=== PATIENT | male | born 1985 | race Caucasian/White ===

== ENCOUNTER 2019-04-26 01:50 | Emergency (ER) | payer SELFPAY ==
[~2019-04-26] VITALS: Ht 177.8 cm; Wt 86.1 kg
[2019-04-26 02:04] LABS: BASOPHILS # (AUTO) 0.1 10^3/uL (0.0-0.1); BASOPHILS % (AUTO) 1 % (0-10); EOSINOPHILS # (AUTO) 0.2 10^3/uL (0.0-0.3); EOSINOPHILS % (AUTO) 2 % (0-10); HEMATOCRIT 43 % (40-54); HEMOGLOBIN 15.3 G/DL (13.3-17.7); LYMPHOCYTES # (AUTO) 4.2 X 10^3 (1.0-4.0); LYMPHOCYTES % (AUTO) 55 % (12-44); MEAN CORPUSCULAR HEMOGLOBIN 33 PG (25-34); MEAN CORPUSCULAR HGB CONC 36 G/DL (32-36); MEAN CORPUSCULAR VOLUME 93 FL (80-99); MEAN PLATELET VOLUME 10.4 FL (7.4-10.4); MONOCYTES # (AUTO) 0.5 X 10^3 (0.0-1.0); MONOCYTES % (AUTO) 7 % (0-12); NEUTROPHILS # (AUTO) 2.7 X 10^3 (1.8-7.8); NEUTROPHILS % (AUTO) 35 % (42-75); PLATELET COUNT 325 10^3/uL (130-400); WHITE BLOOD COUNT 7.7 10^3/uL (4.3-11.0)
[2019-04-26 02:15] LABS: INR 0.9 (0.8-1.4); PROTHROMBIN TIME PATIENT 12.5 SEC (12.2-14.7)
[2019-04-26] MEDS ORDERED: NS IV 1000 ML 1,000 ML IV ONE (02:22)
[2019-04-26 02:23] LABS: ACETAMINOPHEN < 10 UG/ML (10-30); SALICYLATE < 5.0 MG/DL (5.0-20.0)
[2019-04-26 02:25] LABS: ALANINE AMINOTRANSFERASE 41 U/L (0-55); ALKALINE PHOSPHATASE 66 U/L (40-136); BILIRUBIN,TOTAL 0.4 MG/DL (0.1-1.0); BUN/CREATININE RATIO 18; CALCIUM 10.7 MG/DL (8.5-10.1); CARBON DIOXIDE 18 MMOL/L (21-32); CHLORIDE 102 MMOL/L (98-107); CREATININE SERUM 0.92 MG/DL (0.60-1.30); GFR ESTIMATED > 60; GLUCOSE 83 MG/DL (70-105); MAGNESIUM 1.6 MG/DL (1.6-2.4); POTASSIUM 3.3 MMOL/L (3.6-5.0); SODIUM 141 MMOL/L (135-145); TOTAL PROTEIN 8.5 GM/DL (6.4-8.2)
[2019-04-26] MEDS ORDERED: LORazepam INJ 2 MG/ML (ATIVAN) VIAL IVP ONE (02:30)
[2019-04-26 02:31] LABS: AMPHETAMINE SCREEN, URINE NEGATIVE (NEGATIVE); BARBITURATE SCREEN URINE NEGATIVE (NEGATIVE); BENZODIAZEPINES SCREEN URINE NEGATIVE (NEGATIVE); CANNABINOID SCREEN, URINE NEGATIVE (NEGATIVE); COCAINE SCREEN URINE NEGATIVE (NEGATIVE); METHADONE STAT NEGATIVE (NEGATIVE); METHAMPHETAMINE SCREEN URINE S NEGATIVE (NEGATIVE); OPIATE SCREEN URINE NEGATIVE (NEGATIVE); OXYCODONE STAT NEGATIVE (NEGATIVE); PROPOXYPHENE STAT NEGATIVE (NEGATIVE); TRICYCLIC ANTIDEPRESSANTS SCRE NEGATIVE (NEGATIVE)
[2019-04-26] MEDS ORDERED: KCL 10 MEQ TAB (MICRO K) PO ONE (03:15)
--- NOTE | 2019-04-26 03:17 | ED Chest Pain ---
General Chief Complaint: Chest Pain Stated Complaint: GERARDO SOUZA Nursing Triage Note: WOKE UP WITH A SQUEEZING PAIN IN HIS CHEST Nursing Sepsis Screen: No Definite Risk Source: patient, EMS Exam Limitations: no limitations History of Present Illness Date Seen by Provider: Apr 26, 2019 Time Seen by Provider: 01:46 Initial Comments This 34-year-old man presents to the emergency room via EMS with complaints of chest tightness and feeling of anxiousness. He reports taking 14 or 15 Coricidin tablets at approximately 17:30 in an attempt to "get high". He denies any intent to harm himself. He also had 2 drinks of rum today. He denies any other drug use. He has had some mild cough recently but has not been very ill. He is essentially homeless and [place]. The discomfort in his chest jolting him awake shortly before calling EMS. He feels better now and states only minimal pain of 2 out of 10. Patient has significant mental health issues including diagnoses of bipolar disorder and schizophrenia. Allergies and Home Medications Allergies Coded Allergies: Penicillins (Verified Allergy, Unknown, 04/26/19) Patient Home Medication List Home Medication List Reviewed: Yes Review of Systems Review of Systems Constitutional: no symptoms reported EENTM: No Symptoms Reported Respiratory: No Symptoms Reported Cardiovascular: See HPI Gastrointestinal: No Symptoms Reported Genitourinary: No Symptoms Reported Musculoskeletal: no symptoms reported Skin: no symptoms reported Psychiatric/Neurological: See HPI Endocrine: No Symptoms Reported Hematologic/Lymphatic: No Symptoms Reported Past Rjkqapt-Rmdfbu-Bkblxo Hx Past Med/Social Hx: Reviewed and Corrections made Patient Social History Alcohol Use: Occasionally Uses Recreational Drug Use: Yes Drug of Choice: MARIJUANA, COUGH AND COLD PILLS Smoking Status: Current Everyday Smoker Type Used: Cigarettes Recent Foreign Travel: No Contact w/Someone Who Travel: No Recent Infectious Disease Expo: No Recent Hopitalizations: No Physical Abuse: No Sexual Abuse: No Mistreated: No Fear: No Past Medical History Surgeries: No Respiratory: No Cardiac: No Neurological: No Genitourinary: No Gastrointestinal: No Musculoskeletal: No Endocrine: No HEENT: No Cancer: No Psychosocial: Yes (POLYSUBSTANCE ABUSE) Bipolar, Schizophrenia, Depression Integumentary: No Physical Exam Vital Signs Vital Signs - First Documented 04/26/19 01:50 Temp 36.7 Pulse 105 Resp 20 B/P (MAP) 151/100 (117) Pulse Ox 99 O2 Delivery Room Air Capillary Refill : Less Than 3 Seconds Height, Weight, BMI Height: '" Weight: lbs. oz. kg; 27.00 BMI Method: General Appearance: WD/WN, Anxious HEENT: PERRL/EOMI, Normal ENT Inspection Neck: Normal Inspection Respiratory: Lungs Clear, Normal Breath Sounds, No Accessory Muscle Use, No Respiratory Distress Cardiovascular: No Edema, Tachycardia Gastrointestinal: Normal Bowel Sounds, Non Tender, Soft Extremity: Normal Inspection, No Pedal Edema Neurologic/Psychiatric: Alert, Oriented x3, No Motor/Sensory Deficits, dray driver II- XII Norm as Tested, Other (anxious, fine tremor) Skin: Normal Color, Warm/Dry Progress/Results/Core Measures Results/Orders Lab Results Laboratory Tests Test 04/26/19 01:55 04/26/19 02:13 Range/Units White Blood Count 7.7 4.3-11.0 10^3/uL Red Blood Count 4.65 4.35-5.85 10^6/uL Hemoglobin 15.3 13.3-17.7 G/DL Hematocrit 43 40-54 % Mean Corpuscular Volume 93 80-99 FL Mean Corpuscular Hemoglobin 33 25-34 PG Mean Corpuscular Hemoglobin Concent 36 32-36 G/DL Red Cell Distribution Width 13.0 10.0-14.5 % Platelet Count 325 130-400 10^3/uL Mean Platelet Volume 10.4 7.4-10.4 FL Neutrophils (%) (Auto) 35 L 42-75 % Lymphocytes (%) (Auto) 55 H 12-44 % Monocytes (%) (Auto) 7 0-12 % Eosinophils (%) (Auto) 2 0-10 % Basophils (%) (Auto) 1 0-10 % Neutrophils # (Auto) 2.7 1.8-7.8 X 10^3 Lymphocytes # (Auto) 4.2 H 1.0-4.0 X 10^3 Monocytes # (Auto) 0.5 0.0-1.0 X 10^3 Eosinophils # (Auto) 0.2 0.0-0.3 10^3/uL Basophils # (Auto) 0.1 0.0-0.1 10^3/uL Prothrombin Time 12.5 12.2-14.7 SEC INR Comment 0.9 0.8-1.4 Activated Partial Thromboplast Time 28 24-35 SEC Sodium Level 141 135-145 MMOL/L Potassium Level 3.3 L 3.6-5.0 MMOL/L Chloride Level 102 98-107 MMOL/L Carbon Dioxide Level 18 L 21-32 MMOL/L Anion Gap 21 H 5-14 MMOL/L Blood Urea Nitrogen 17 7-18 MG/DL Creatinine 0.92 0.60-1.30 MG/DL Estimat Glomerular Filtration Rate > 60 BUN/Creatinine Ratio 18 Glucose Level 83 70-105 MG/DL Calcium Level 10.7 H 8.5-10.1 MG/DL Corrected Calcium 8.5-10.1 MG/DL Magnesium Level 1.6 1.6-2.4 MG/DL Total Bilirubin 0.4 0.1-1.0 MG/DL Aspartate Amino Transf (AST/SGOT) 33 5-34 U/L Alanine Aminotransferase (ALT/SGPT) 41 0-55 U/L Alkaline Phosphatase 66 40-136 U/L Myoglobin 34.2 10.0-92.0 NG/ML Troponin I < 0.028 <0.028 NG/ML Total Protein 8.5 H 6.4-8.2 GM/DL Albumin 5.0 H 3.2-4.5 GM/DL Salicylates Level < 5.0 L 5.0-20.0 MG/DL Acetaminophen Level < 10 L 10-30 UG/ML Serum Alcohol 12 H <10 MG/DL Urine Opiates Screen NEGATIVE NEGATIVE Urine Oxycodone Screen NEGATIVE NEGATIVE Urine Methadone Screen NEGATIVE NEGATIVE Urine Propoxyphene Screen NEGATIVE NEGATIVE Urine Barbiturates Screen NEGATIVE NEGATIVE Ur Tricyclic Antidepressants Screen NEGATIVE NEGATIVE Urine Phencyclidine Screen NEGATIVE NEGATIVE Urine Amphetamines Screen NEGATIVE NEGATIVE Urine Methamphetamines Screen NEGATIVE NEGATIVE Urine Benzodiazepines Screen NEGATIVE NEGATIVE Urine Cocaine Screen NEGATIVE NEGATIVE Urine Cannabinoids Screen NEGATIVE NEGATIVE My Orders Orders - SEVEN VAUGHAN MD Cbc With Automated Diff (04/26/19 01:57) Magnesium (04/26/19 01:57) Chest 1 View, Ap/Pa Only (04/26/19 01:57) Ekg Tracing (04/26/19 01:57) Comprehensive Metabolic Panel (04/26/19 01:57) Myoglobin Serum (04/26/19 01:57) Protime With Inr (04/26/19 01:57) Partial Thromboplastin Time (04/26/19 01:57) O2 (04/26/19 01:57) Monitor-Rhythm Ecg Trace Only (04/26/19 01:57) Lipid Panel (04/27/19 06:00) Ed Iv/Invasive Line Start (04/26/19 01:57) Troponin I (04/26/19 01:57) Acetaminophen (04/26/19 01:57) Alcohol (04/26/19 01:57) Drug Screen Stat (Urine) (04/26/19 01:57) Salicylate (04/26/19 01:57) Lorazepam Injection (Ativan Injection) (04/26/19 02:30) Ns Iv 1000 Ml (Sodium Chloride 0.9%) (04/26/19 02:22) Ekg Tracing (04/26/19 03:05) Potassium Chloride (Tablet) (Klor Con Ta (04/26/19 03:15) Medications Given in ED Current Medications Medications Dose Ordered Sig/Sophy Route Start Time Stop Time Status Last Admin Dose Admin Lorazepam 2 mg ONCE ONCE IVP 04/26/19 02:30 04/26/19 02:31 DC 04/26/19 02:27 2 MG Potassium Chloride 20 meq ONCE ONCE PO 04/26/19 03:15 04/26/19 03:16 DC 04/26/19 03:16 20 MEQ Sodium Chloride 1,000 ml @ 0 mls/hr Q0M ONCE IV 04/26/19 02:22 04/26/19 02:23 DC 04/26/19 02:27 1,000 MLS/HR Vital Signs/I&O 04/26/19 04/26/19 01:50 01:50 Temp 36.7 Pulse 105 Resp 20 B/P (MAP) 151/100 (117) Pulse Ox 99 O2 Delivery Room Air Blood Pressure Mean: 117 Progress Progress Note #1: Progress Note Case was discussed with poison control. They recommended aggressive hydration and treat with benzodiazepines. Ativan 2 mg IV was administered with good improvement in symptoms. Labs are relatively unremarkable. Chest x-ray was normal. Patient is being given a small amount of potassium supplement. Poison control recommended repeating EKG in 2 hours. Progress Note #2: Time: 04:05 Progress Note Patient's symptoms have resolved and vital signs are stable. Repeat EKG is normal with QTc trending down. Based on conversation with poison control patient may be discharged. His constellation of symptoms can be explained by Coricidin overdose. Initial ECG Impression Date: Apr 26, 2019 Initial ECG Impression Time: 01:58 Initial ECG Rate: 98 Initial ECG Rhythm: S.Tach Comment Sinus tachycardia with no ST elevation or depression. No abnormal intervals or axis deviation. Borderline prolonged QT interval. EKG : EKG Time: 03:53 Rate: 96 Rhythm: Normal Sinus Intervals: Normal ECG Impression: Normal Comment Normal sinus rhythm with no ST elevation or depression. No abnormal intervals or axis deviation. QTc is trending down. Diagnostic Imaging Diagonstic Imaging: Xray Plain Films/CT/US/NM/MRI: chest Comments Chest x-ray viewed by me and report not yet available. No acute abnormality appreciated. Departure Impression Primary Impression: Overdose of drug Qualified Codes: T50.904A - Poisoning by unspecified drugs, medicaments and biological substances, undetermined, initial encounter Additional Impressions: Chest pain Qualified Codes: R07.9 - Chest pain, unspecified Hypokalemia Disposition: 01 HOME, SELF-CARE Condition: Improved Departure-Patient Inst. Decision time for Depature: 04:06 Patient Instructions: Accidental Overdose Add. Discharge Instructions: Due to use of the medication including [id number] medications in excess of recommended doses. Doing so may be very dangerous, disabling, or lethal. Return to care if you have worsening symptoms. All discharge instructions reviewed with patient and/or family. Voiced understanding. SEVEN VAUGHNA MD Apr 26, 2019 03:17
--- NOTE | 2019-04-26 03:32 | NUR ---
MEAL TRAY PROVIDED TO PATIENT PER DR PALUMBO
[2019-04-26 04:21] VITALS: BP 139/91
--- NOTE | 2019-04-26 06:18 | Diagnostic Imaging Report ---
INDICATION: Chest pain. COMPARISON: None. FINDINGS: Single view of the chest demonstrates clear lungs bilaterally. The heart is normal. There is no pneumothorax. Osseous structures normal. IMPRESSION: Negative chest. Dictated by: Dictated on workstation # [id number]
== END 2019-04-26 04:21 | disposition home or self-care (01) ==
LOC: ER 01:52
DX: T48.3X1A Poisoning by antitussives, accidental (unintentional), initial encounter (principal); E87.6 Hypokalemia; R07.89 Other chest pain; F31.9 Bipolar disorder, unspecified; F20.9 Schizophrenia, unspecified; F17.210 Nicotine dependence, cigarettes, uncomplicated; Z88.0 Allergy status to penicillin
CPT/HCPCS: 36415; 71045; 80053; 80306; 80320; 80329; 83735; 83874; 84484; 85025; 85610; 85730; 93005; 93041